=== PATIENT | female | born 1995 | race American Indian/Alaskan Native ===

== ENCOUNTER 2019-07-07 08:13 | Outpatient (CLI) | payer OTHER | END 2019-07-07 14:55 | disposition home or self-care (01) | LOC: OBS/DEL 08:13 | DX: O35.0XX1 Maternal care for (suspected) central nervous system malformation in fetus, fetus 1 (principal); O26.843 Uterine size-date discrepancy, third trimester; O36.8191 Decreased fetal movements, unspecified trimester, fetus 1; O47.1 False labor at or after 37 completed weeks of gestation ==

== ENCOUNTER 2019-07-14 06:05 | Inpatient (IN) | payer OTHER ==
[~2019-07-14] VITALS: Ht 157.5 cm; Wt 67.1 kg
[2019-07-14] MEDS ORDERED: PRENATAL CAPLE1 EAC1 PO (06:30)
== END 2019-07-16 14:14 | disposition home or self-care (01) | DRG 807 ==
LOC: LDR 06:05 → OB/GYN 06:05
PROVIDERS: ADMIT Obstetrics & Gynecology
PROC: 10E0XZZ Delivery of Products of Conception, External Approach (ICD-10-PCS; principal; 2019-07-14)
PROC: 10907ZC Drainage of Amniotic Fluid, Therapeutic from Products of Conception, Via Natural or Artificial Opening (ICD-10-PCS; 2019-07-14)
PROC: 3E033VJ Introduction of Other Hormone into Peripheral Vein, Percutaneous Approach (ICD-10-PCS; 2019-07-14)
PROC: 4A1HXCZ Monitoring of Products of Conception, Cardiac Rate, External Approach (ICD-10-PCS; 2019-07-14)
DX: O80 Encounter for full-term uncomplicated delivery (principal); Z37.0 Single live birth; Z3A.39 39 weeks gestation of pregnancy